=== PATIENT | female | born 1950 | race Caucasian/White ===

== ENCOUNTER → 2020-11-03 | Outpatient (CLI) | payer OTHER ==
[2014-11-14 17:20] VITALS: BP 148/76
[~2020-11-03] MED LIST: ACET-704 PO; CALC-77 PO; FERR159T3 PO; FLEXERIL; NAPR-514 PO; VIT1TABL2 PO
--- NOTE | 2020-11-03 09:29 | RAD ---
CT scan abdomen and pelvis without contrast 11/03/2020 CLINICAL HISTORY: Left lower quadrant abdominal pain. Nausea. TECHNIQUE: Unenhanced, contiguous, 3 mm axial sections were obtained through the abdomen and pelvis. One or more of the following individualized dose reduction techniques were utilized for this study: 1. Automated exposure control. 2. Adjustment of the mA and/or kV according to patient size. 3. Use of iterative reconstruction technique. FINDINGS: Images through the lung bases demonstrate minimal dependent subsegmental atelectasis bilate rally. There is mild cardiomegaly. The liver, spleen, pancreas, adrenal glands and right kidney are within normal limits. A 5 mm nonobst ructing calculus is seen involving the lower pole of the left kidney. Atherosclerotic calcification abdominal aorta is seen. The abdominal aorta tapers normally. The gallb ladder is contracted. No free fluid or free air is seen within the abdomen. Surgical clips are seen i n the region of the GE junction. There is no evidence of bowel obstruction. The appendix is well-visu alized and is within normal limits. Images through the pelvis demonstrated the urinary bladder to be slightly contracted. Calcifications are seen within the pelvis consistent with phleboliths. No free fluid is seen. Scattered diverticula are seen involving the sigmoid colon. No inflammatory changes are seen adjacent fat. Very mild S-shap ed curvature of the thoracolumbar spine is noted. Degenerative changes are seen involving the lower t horacic and throughout the lumbar spine along with both hips. IMPRESSION: No acute abnormality is seen. Electronically signed by: Filiberto Ryan MD (11/03/2020 9:27 AM) [id number]
== END ==
LOC: CT 08:45
PROVIDERS: ATTEND Family Medicine
DX: K57.30 Diverticulosis of large intestine without perforation or abscess without bleeding (principal); J98.11 Atelectasis; K82.8 Other specified diseases of gallbladder; I51.7 Cardiomegaly; N20.0 Calculus of kidney; I70.0 Atherosclerosis of aorta; M43.05 Spondylolysis, thoracolumbar region; M47.815 Spondylosis without myelopathy or radiculopathy, thoracolumbar region; M16.0 Bilateral primary osteoarthritis of hip; Z98.890 Other specified postprocedural states
CPT/HCPCS: 74176